=== PATIENT | female | born 2000 | race Caucasian/White ===

== ENCOUNTER 2021-03-25 14:47 | Emergency (ER) | payer SELFPAY ==
[~2021-03-25] VITALS: Ht 165.1 cm; Wt 77.0 kg
[2021-03-25 15:02] VITALS: BP 137/87
[2021-03-25] MEDS ORDERED: IBUP-2029 MT (16:51)
[2021-03-25] MEDS ORDERED: P20 MT (16:51)
[2021-03-25] MEDS ORDERED: IBUPROFEN 600MG TABLET PO ONE (17:00)
== END 2021-03-25 17:20 | disposition home or self-care (01) ==
LOC: ER 14:47
DX: J02.8 Acute pharyngitis due to other specified organisms (principal); Z88.0 Allergy status to penicillin
CPT/HCPCS: 87070; 87430; 99283

== ENCOUNTER 2021-06-09 17:16 | Emergency (ER) | payer BC, OTHER ==
[~2021-06-09] VITALS: Ht 165.1 cm; Wt 73.0 kg
[~2021-06-09 17:16] MED LIST: IBUP-2029 MT; P20 MT
[2021-06-09 17:24] VITALS: BP 129/85
[2021-06-09] MEDS ORDERED: OFLO5DRO4 EACH EAR (17:32)
== END 2021-06-09 17:35 | disposition home or self-care (01) ==
LOC: ER 17:16
DX: H60.93 Unspecified otitis externa, bilateral (principal); Z88.0 Allergy status to penicillin
CPT/HCPCS: 99283